=== PATIENT | female | born 1940 | race African-American/Black ===

== ENCOUNTER → 2016-04-07 | Outpatient (CLI) | payer MEDICARE, OTHER ==
--- NOTE | 2016-04-08 07:41 | XCELERA REPORT ---
[address] [address] Lower Extremity Arterial Evaluation Name: FLACO STEWART Age: 75 yrs Gender: Female : 1940 Patient Status: Outpatient Patient Location: Study Date: 04/07/2016 01:03 PM Procedure: A color flow and duplex scan of the lower extremity arteries was performed bilaterally with velocity and waveform anaylsis. Ankle brachial indicies performed. Reason For Study: RLE ULCER L97.812 Ordering Physician: ALEJANDRO SOOD Performed By: Austen Obrien Measurements and Calculations Right Left SUPPLY CHAIN DESIGN MANAGER PSV 117.1 85.1 cm/sec Prox PFA PSV -73.5 -77.3 cm/sec Dist SFA PSV -73.3 -63.5 cm/sec Prox Pop A PSV 61.8 55.3 cm/sec Dist CORI PSV 51.5 29.9 cm/sec Dist LABORATORY TECHNOLOGY TEACHER PSV -58.3 55.6 cm/sec González Pedis PSV 61.5 61.5 cm/sec Right Side Arterial Evaluation Normal velocity, waveform and triphasic flow are present, from the Common Femoral artery to the Femora. Then biphasic to the infrageniculate vessels. The ankle-brachial index is 1.14. 0-19 % stenosis is noted . At the Femoral. Left Side Arterial Evaluation Normal velocity, waveform and triphasic flow are present, from the Common Femoral artery to the Femoral. Then biphasic to the infrageniculate vessels. The ankle-brachial index is 1.14. 0-19 % stenosis is noted . At the Femoral. Interpretation Summary Mild hemodynamically significant lesions in the bilateral lower extremities, on duplex imaging, at rest. : ALEJANDRO SOOD > Jb Oseguera
--- NOTE | 2016-04-08 08:04 | XCELERA REPORT ---
[address] [address] Lower Extremity Venous Evaluation Name: FLACO STEWART Age: 75 yrs Gender: Female : 1940 Patient Status: Outpatient Patient Location: Study Date: 04/07/2016 01:15 PM Procedure: A bilateral duplex scan of the lower extremity veins was performed. The evaluation included responses to compression and other maneuvers with patient in the supine and standing positions to assess venous insufficiency. Reason For Study: RLE ULCER L97.812 Ordering Physician: ALEJANDRO SOOD Performed By: Austen Obrien Right Sided Venous Evaluation Deep venous system evaluation shows patent veins with significant reflux identified. 4.4 second reflux in the CFV,. Sapheno Femoral junction: 4.5 second reflux. Greater Saphenous vein, Proximal thigh: reflux: no reflux. Greater Saphenous vein, mid thigh: reflux: no reflux. Greater Saphenous vein, Distal thigh: reflux: no reflux. Greater Saphenous vein, Proximal below knee: reflux: 4.1 seconds. 6 mm diameter. Greater Saphenous vein, Mid below knee: reflux: none. Greater Saphenous vein, Distal below knee: reflux: 3.8 seconds. 3 mm diameter. No significant Perforators identified. Left Sided Venous Evaluation Deep venous system evaluatiion shows patent veins with no obstruction or significant reflux identified. Sapheno Femoral junction: no reflux. Femoral vein reflux: no reflux. Greater Saphenous vein, Proximal thigh: reflux: no reflux. Greater Saphenous vein, Distal thigh: reflux: 4.6 seconds.4 mm diameter. Greater Saphenous vein, Proximal below knee: reflux: no reflux. No significant Perforators identified. Interpretation Summary No duplex evidence of DVT or obstruction in the bilateral lower extremities. Minimal reflux as noted. : ALEJANDRO SOOD > Jb Oseguera
== END ==
LOC: SP 12:40
PROVIDERS: ATTEND Plastic Surgery
DX: I87.2 Venous insufficiency (chronic) (peripheral) (principal); L97.812 Non-pressure chronic ulcer of other part of right lower leg with fat layer exposed
CPT/HCPCS: 93925; 93970

== ENCOUNTER 2016-11-15 18:04 | Emergency (ER) | payer MEDICARE, OTHER ==
[2016-11-15] MEDS ORDERED: CLONIDINE 0.2 MG/24 HR PATCH.TDWK TD ONE (21:42)
--- NOTE | 2016-11-15 21:50 | ER Document Report ---
ED Cardiac - General Mode of Arrival: Medic Information source: Patient TRAVEL OUTSIDE OF THE U[place] IN LAST 30 DAYS: No - HPI Patient complains to provider of: Other - elevated blood pressures at home Quality of pain: None Similar symptoms previously: Yes Recently seen / treated by doctor: Yes <CALOS PATTON - Last Filed: 11/15/16 21:51> <BARON MEDINA - Last Filed: 11/16/16 00:51> - General Time Seen by Provider: 11/15/16 21:40 Notes: Patient is a 76-year-old female who presents to the emergency department today with complaints of elevated blood pressures at home. Patient is currently on metoprolol 50 mg twice a day. Patient denies any recent changes in her medications. Patient also mentions that she has "side pain" but mentions that she has had this pain off and on in the past as well. Patient states she had no symptoms associated with the hypertension. (CALOS PATTON) - Related Data Allergies/Adverse Reactions: Shellfish * [Shellfish] Allergy (Severe, Verified 03/12/15 09:55) Rash Sulfa (Sulfonamide Antibiotics) Allergy (Severe, Verified 03/12/15 09:55) Burning pain in thighs/legs lactose [Lactose] Allergy (Intermediate, Verified 03/12/15 09:55) latex [Latex] Allergy (Intermediate, Verified 03/12/15 09:55) Skin gets dry & chapped Past Medical History - General Information source: Patient, [facility] Records - Social History Smoking Status: Never Smoker Cigarette use (# per day): No Chew tobacco use (# tins/day): No Frequency of alcohol use: None Drug Abuse: None Lives with: Family Family History: Reviewed & Not Pertinent - Past Medical History Cardiac Medical History: Reports: Hx Atrial Fibrillation, Hx Hypercholesterolemia, Hx Hypertension Pulmonary Medical History: Reports: Hx Pneumonia Malignancy Medical History: Reports: Hx Breast Cancer - Rt breast GI Medical History: Reports: Hx Diverticulitis Musculoskeltal Medical History: Reports Hx Arthritis Past Surgical History: Reports: Hx Appendectomy, Hx Bowel Surgery - Ileostomy, bowel resection, Hx Hysterectomy, Hx Ileostomy, Hx Pacemaker - Immunizations Hx Pneumococcal Vaccination: 12/21/05 <CALOS PATTON - Last Filed: 11/15/16 21:51> Review of Systems - Review of Systems Constitutional: No symptoms reported EENT: No symptoms reported Cardiovascular: See HPI, Other - elevated blood pressure at home. denies: Dizziness Respiratory: No symptoms reported Gastrointestinal: See HPI, Other - left "side" pain Genitourinary: No symptoms reported Female Genitourinary: No symptoms reported Musculoskeletal: No symptoms reported Skin: No symptoms reported Hematologic/Lymphatic: No symptoms reported Neurological/Psychological: denies: Headaches -: Yes All other systems reviewed and negative <CALOS PATTON - Last Filed: 11/15/16 21:51> Physical Exam <CALOS PATTON - Last Filed: 11/15/16 21:51> <BARON MEDINA - Last Filed: 11/16/16 00:51> - Vital signs Vitals: Resp Pulse Ox 23 H 100 11/15/16 21:41 11/15/16 21:41 - Notes Notes: PHYSICAL EXAM GENERAL: Alert, interacts well. No acute distress. HEAD: Normocephalic, atraumatic. EYES: Pupils equal, round, and reactive to light. Extraocular movements intact. ENT: Oral mucosa moist, tongue midline. NECK: Full range of motion. Supple. Trachea midline. LUNGS: Clear to auscultation bilaterally, no wheezes, rales, or rhonchi. No respiratory distress. HEART: Regular rate and rhythm. No murmurs, gallops, or rubs. ABDOMEN: Soft, non-tender. No left upper quadrant tenderness where patient indicates location of pain. Non-distended. Bowel sounds present in all 4 quadrants. EXTREMITIES: Moves all 4 extremities spontaneously. No edema, radial and dorsalis pedis pulses 2/4 bilaterally. No cyanosis. NEUROLOGICAL: Alert and oriented x3. Normal speech. PSYCH: Normal affect, normal mood. SKIN: Warm, dry, normal turgor. No rashes or lesions noted. (CALOS PATTON) Course <CALOS PATTON - Last Filed: 11/15/16 21:51> - Laboratory Result Diagrams: 11/15/16 20:25 11/15/16 20:25 <BARON MEDINA - Last Filed: 11/16/16 00:51> - Re-evaluation Re-evalutation: 11/16/16 00:47 CBC slightly low platelet count 106, CMP shows chronically elevated BUN no evidence of endorgan damage, initial troponin is indeterminate at 0.057, repeat troponin is decreasing and is 0.055. EKG is nonischemic. Patient's blood pressure was initially controlled with labetalol and she was given a clonidine patch of 0.2 mg, blood pressure remained decreased compared to arrival, did not want to reduce her blood pressure by more than 20% initially. Patient will be discharged home on clonidine patch, asked to follow-up with cardiology within the next week. ( BARON MEDINA) - Vital Signs Vital signs: Temp Pulse Resp BP Pulse Ox 15 174/70 H 99 11/15/16 23:16 11/15/16 23:15 11/15/16 23:16 - Laboratory Laboratory results interpreted by me: 11/15/16 11/15/16 20:25 20:25 Hct 47.1 H RDW 15.4 H Plt Count 106 L Monocytes % 14.1 H Sodium 146.1 H Potassium 3.4 L BUN 27 H Est GFR (Non-Af Amer) 50 L Glucose 169 H Total Bilirubin 1.8 H Direct Bilirubin 0.7 H AST 53 H Creatine Kinase 145 H Total Protein 6.0 L - EKG Interpretation by Me Additional EKG results interpreted by me: 11/16/16 00:49 EKG shows atrial flutter with a ventricularly paced rhythm, rate of 70, no ST segment elevations or depressions per my interpretation. (BARON MEDINA) Discharge <CALOS PATTON - Last Filed: 11/15/16 21:51> <BARON MEDINA - Last Filed: 11/16/16 00:51> - Discharge Clinical Impression: Hypertensive urgency Condition: Stable Disposition: HOME, SELF-CARE Additional Instructions: Today we did not find any signs of a heart attack. We reduce your blood pressure with labetalol and then started you on a clonidine patch 0.2 mg. This patch is good for 1 week. If you start becoming dizzy or lightheaded please take off the patch. I want you to continue taking your metoprolol twice a day, you may take the Lorazepam up to 3 times a day as needed for anxiety, your venlafaxine is your antidepressant and it should be taken every day as directed. Do not skip doses. I would like to follow-up with your storage brine worker or Dr. Mckenna within the next week to continue adjusting your blood pressure medications. Please check your blood pressure twice a day once in the morning and once at night and record this blood pressure so they know how to adjust your medications. Referrals: GRETCHEN GAN MD [EMERITUS] - Follow up as needed Scribe Attestation: 11/16/16 00:51 I personally performed the services described in the documentation, reviewed and edited the documentation which was dictated to the scribe in my presence, and it accurately records my words and actions. (BARON MEDINA) Scribe Documentation - Scribe Written by Scribe:: Hernando Truong, 11/15/2016 2151 acting as scribe for :: Kulwant <CALOS PATTON - Last Filed: 11/15/16 21:51>
[2016-11-15] MEDS ORDERED: CLONIDINE 0.2 MG/24 HR PATCH.TDWK ONE (21:59)
[2016-11-15] MEDS ORDERED: LIDOCAINE 1% INJ-PF (10 MG/ML) 30 ML SDV INJ ONE (22:44)
[2016-11-15 22:49] LABS: CREATINE KINASE MB 3.94 ng/mL (<4.55)
[2016-11-15 22:51] LABS: ALANINE AMINOTRANSFERASE 43 U/L (9-52); ALBUMIN 3.9 g/dL (3.5-5.0); ALKALINE PHOSPHATASE 117 U/L (38-126); ANION GAP 18 (5-19); ASPARTATE AMINO TRANSFERASE 53 U/L (14-36); BILIRUBIN,DIRECT 0.7 mg/dL (0.0-0.4); BILIRUBIN,TOTAL 1.8 mg/dL (0.2-1.3); BLOOD UREA NITROGEN 27 mg/dL (7-20); CALCIUM 9.3 mg/dL (8.4-10.2); CARBON DIOXIDE 29 mmol/L (22-30); CHLORIDE 99 mmol/L (98-107); CREATINE KINASE 145 U/L (30-135); CREATININE RESULT 1.07 mg/dL (0.52-1.25); GLUCOSE 169 mg/dL (75-110); POTASSIUM 3.4 mmol/L (3.6-5.0); SODIUM 146.1 mmol/L (137-145)
[2016-11-15 22:52] LABS: ABSOLUTE MONOCYTES (AUTO) 0.9 10^3/uL (0.1-1.4); ABSOLUTE NEUT (AUTO) 4.6 10^3/uL (1.7-8.2); BASOPHILS % (AUTO) 0.4 % (0-2); EOSINOPHILS % (AUTO) 0.3 % (0-6); HEMATOCRIT 47.1 % (36.0-47.0); HEMOGLOBIN 15.2 g/dL (12.0-15.5); HGB HCT DIFFERENCE -1.5; LYMPHOCYTES % (AUTO) 14.8 % (13-45); MEAN CORPUSCULAR HEMOGLOBIN 29.3 pg (27.0-33.4); MEAN CORPUSCULAR HGB CONC 32.3 g/dL (32.0-36.0); MEAN CORPUSCULAR VOLUME 91 fl (80-97); MONOCYTES % (AUTO) 14.1 % (3-13); RED BLOOD COUNT 5.18 10^6/uL (3.72-5.28); RED CELL DISTRIBUTION WIDTH 15.4 % (11.5-14.0); SEGMENTED NEUTROPHILS % (AUTO) 70.4 % (42-78); WHITE BLOOD COUNT 6.6 10^3/uL (4.0-10.5)
[2016-11-15 23:00] LABS: TROPONIN I 0.057 ng/mL
[2016-11-16 00:20] LABS: CREATINE KINASE MB 3.01 ng/mL (<4.55); TROPONIN I 0.055 ng/mL
[2016-11-16 01:15] VITALS: BP 170/101
--- NOTE | 2016-11-17 12:20 | EKG REPORT ---
SEVERITY:- ABNORMAL ECG - AFIB/FLUTTER AND VENTRICULAR-PACED RHYTHM : Confirmed by: Pennie Heard MD 17-Nov-2016 12:19:26
== END 2016-11-16 01:37 | disposition home or self-care (01) ==
LOC: ER 18:04
DX: I16.0 Hypertensive urgency (principal); I48.91 Unspecified atrial fibrillation; I10 Essential (primary) hypertension; E78.00 Pure hypercholesterolemia, unspecified; Z85.3 Personal history of malignant neoplasm of breast; Z90.710 Acquired absence of both cervix and uterus
CPT/HCPCS: 36415; 80053; 82550; 82553; 84484; 85025; 93005; 93010; 99284; J3490

== ENCOUNTER 2017-02-04 12:02 | Emergency (ER) | payer MEDICARE, OTHER ==
--- NOTE | 2017-02-04 13:02 | ER Document Report ---
ED Medical Screen (RME) - General Chief Complaint: Eye Problem Stated Complaint: EYE PROBLEM Time Seen by Provider: 02/04/17 12:52 Notes: The patient is a 76-year-old female, past medical history cataract surgery, presents with several weeks of intermittent bilateral blurry vision. She was at the volunteer assistant office today and noticed that her left eye was blurrier than normal and she was sent to the ER for further evaluation. PE: NAD. Pupils dilated and non-reactive (pupils may have been dilated at volunteer assistant's office). I have greeted and performed a rapid initial assessment of this patient. A comprehensive ED assessment and evaluation of the patient, analysis of test results and completion of the medical decision making process will be conducted by additional ED providers. TRAVEL OUTSIDE OF THE [place] IN LAST 30 DAYS: No - Related Data Allergies/Adverse Reactions: Shellfish * [Shellfish] Allergy (Severe, Verified 02/04/17 12:28) Rash Sulfa (Sulfonamide Antibiotics) Allergy (Severe, Verified 02/04/17 12:28) Burning pain in thighs/legs lactose [Lactose] Allergy (Intermediate, Verified 02/04/17 12:28) latex [Latex] Allergy (Intermediate, Verified 02/04/17 12:28) Skin gets dry & chapped Past Medical History - Social History Chew tobacco use (# tins/day): No Frequency of alcohol use: None Drug Abuse: None - Past Medical History Cardiac Medical History: Reports: Hx Atrial Fibrillation, Hx Hypercholesterolemia, Hx Hypertension Pulmonary Medical History: Reports: Hx Pneumonia Renal/ Medical History: Denies: Hx Peritoneal Dialysis Malignancy Medical History: Reports: Hx Breast Cancer - Rt breast GI Medical History: Reports: Hx Diverticulitis Musculoskeltal Medical History: Reports Hx Arthritis Past Surgical History: Reports: Hx Appendectomy, Hx Bowel Surgery - Ileostomy, bowel resection, Hx Hysterectomy, Hx Ileostomy, Hx Pacemaker Physical Exam - Vital signs Vitals: Temp Pulse Resp BP Pulse Ox 97.7 F 70 16 158/106 H 100 02/04/17 12:23 02/04/17 12:23 02/04/17 12:23 02/04/17 12:23 02/04/17 12:23 - HEENT Visual acuity- Right eye: 2/100 Visual acuity- Left eye: 2/100 Visual acuity- Both eyes: 2/100 Corrective lenses worn: Yes Course - Vital Signs Vital signs: Temp Pulse Resp BP Pulse Ox 97.7 F 70 16 158/106 H 100 02/04/17 12:23 02/04/17 12:23 02/04/17 12:23 02/04/17 12:23 02/04/17 12:23
--- NOTE | 2017-02-04 14:08 | ER Document Report ---
ED General - General Chief Complaint: Eye Problem Stated Complaint: EYE PROBLEM Time Seen by Provider: 02/04/17 12:52 Information source: Parent Notes: Patient is a 76-year-old female who presents from the residential real estate assistant office, . The patient states she started to have some left eye "irritation" yesterday. She denies any pain of the feeling or sensation of a foreign body. Patient states she has had this "many times" in the past and was provided eye ointment by Dr. Diehl district manager postal service according to the patient. Patient denies any blurry vision, double vision, eye pain, headache, neck pain, chest pain, palpitations, weakness or numbness, or fever. The residential real estate assistant was not able to find any foreign bodies in the eye but states that he believes that the patient is having a cranial nerve III left eye palsy as well as possibly palsy to the right eye and may be facial drooping. The patient states she does not feel any different than baseline. Patient does have a history of diabetes that has been poorly controlled in the past. Patient states she has seen her district manager postal service as well as her primary care physician Dr. Perera recently and they "had mentioned this". TRAVEL OUTSIDE OF THE [place] IN LAST 30 DAYS: No - HPI Onset: Other - See above Onset/Duration: Gradual Quality of pain: No pain Severity: Mild Pain Level: Denies Associated symptoms: Other - See above Exacerbated by: Denies Relieved by: Denies Similar symptoms previously: No Recently seen / treated by doctor: Yes - Related Data Allergies/Adverse Reactions: Shellfish * [Shellfish] Allergy (Severe, Verified 02/04/17 12:28) Rash Sulfa (Sulfonamide Antibiotics) Allergy (Severe, Verified 02/04/17 12:28) Burning pain in thighs/legs lactose [Lactose] Allergy (Intermediate, Verified 02/04/17 12:28) latex [Latex] Allergy (Intermediate, Verified 02/04/17 12:28) Skin gets dry & chapped Past Medical History - General Information source: Patient - Social History Smoking Status: Never Smoker Cigarette use (# per day): No Chew tobacco use (# tins/day): No Smoking Education Provided: No Frequency of alcohol use: None Drug Abuse: None Family History: Reviewed & Not Pertinent Patient has suicidal ideation: No Patient has homicidal ideation: No - Past Medical History Cardiac Medical History: Reports: Hx Atrial Fibrillation, Hx Hypercholesterolemia, Hx Hypertension Pulmonary Medical History: Reports: Hx Pneumonia Renal/ Medical History: Denies: Hx Peritoneal Dialysis Malignancy Medical History: Reports: Hx Breast Cancer - Rt breast GI Medical History: Reports: Hx Diverticulitis Musculoskeltal Medical History: Reports Hx Arthritis Past Surgical History: Reports: Hx Appendectomy, Hx Bowel Surgery - Ileostomy, bowel resection, Hx Hysterectomy, Hx Ileostomy, Hx Pacemaker - Immunizations Hx Pneumococcal Vaccination: 12/21/05 Review of Systems - Review of Systems Constitutional: denies: Fever EENT: Eye discharge, Tearing. denies: Blurred vision, Double vision, Nose discharge, Sinus discharge, Throat pain, Difficulty swallowing Cardiovascular: denies: Chest pain, Palpitations Respiratory: denies: Short of breath Gastrointestinal: denies: Vomiting Musculoskeletal: denies: Leg swelling Skin: Other - no hives. denies: Rash Neurological/Psychological: Other - no slurred speech -: Yes All other systems reviewed and negative Physical Exam - Vital signs Vitals: Temp Pulse Resp BP Pulse Ox 97.7 F 70 16 158/106 H 100 02/04/17 12:23 02/04/17 12:23 02/04/17 12:23 02/04/17 12:23 02/04/17 12:23 Interpretation: Normal Notes: Reviewed vital signs and nursing note as charted by RN. CONSTITUTIONAL: Alert and oriented and responds appropriately to questions. Well -appearing; well-nourished HEAD: Normocephalic; atraumatic EYES: Sclerae non-icteric; patient has bilateral irregular pupils consistent with prior bilateral cataract surgeries ENT: Normal nose; no rhinorrhea; moist mucous membranes; pharynx without lesions noted NECK: Supple without meningismus; non-tender; no carotid bruits CARD: Regular rate and rhythm; no murmurs RESP: Normal chest excursion without splinting or tachypnea; breath sounds clear and equal bilaterally ABD/GI: Normal bowel sounds; non-distended; soft, non-tender BACK: The back appears normal and is non-tender to palpation EXT: Normal ROM in all joints; no edema SKIN: No acute lesions noted NEURO: Patient has 5 out of 5 bilateral upper and lower extremity strength with sensation intact to light touch patient's left eye. Does appear to be in the down and out position consistent with a 3rd nerve palsy. Patient also appears to not be able to perform a lateral medial gaze of her right eye. In addition the patient appears to have some right facial drooping. PSYCH: The patient's mood and manner are appropriate. Grooming and personal hygiene are appropriate. - HEENT Visual acuity- Right eye: 2/100 Visual acuity- Left eye: 2/100 Visual acuity- Both eyes: 2/100 Corrective lenses worn: Yes Course - Re-evaluation Re-evalutation: 02/04/17 14:11 Given the above history and physical examination I will order an MRI MRA of the head. We will also obtain basic labs, and EKG, and reassess. I would like to evaluate for possible stroke or aneurysm. Given the long-standing history of diabetes with the patient really having no complaints or new symptomatology, I am wondering if this is a chronic condition secondary to uncontrolled diabetes for an extended period of time. 02/04/17 14:12 EKG shows a heart rate of 72, ventricularly paced rhythm intermittently 02/04/17 17:11 Patient could not have an MRI performed secondary to the patient's pacemaker. CT with and without contrast of the head as well as a CTA did not show any obvious infarcts or aneurysms. Patient still insists that she has no complaints. Labs and EKG as recorded. Patient still has no weakness or numbness to the arms or legs. Given the above history, physical, extensive imaging, I will attempt to call the patient's primary care physician once again, and the patient will be discharged home with strict return precautions. 02/04/17 17:16 I was able to call and speak to the opthomologist that sent the patient. I have alerted him of the findings and have had the patient follow up with him and primary physician once again. - Vital Signs Vital signs: Temp Pulse Resp BP Pulse Ox 97.7 F 70 16 158/106 H 100 02/04/17 12:23 02/04/17 12:23 02/04/17 12:23 02/04/17 12:23 02/04/17 12:23 - Laboratory Result Diagrams: 02/04/17 14:00 02/04/17 14:00 Laboratory results interpreted by me: 02/04/17 02/04/17 14:00 14:00 RBC 5.84 H Hgb 16.8 H Hct 51.5 H RDW 15.3 H Plt Count 127 L Monocytes % 16.5 H Sodium 150.4 H Potassium 3.5 L Carbon Dioxide 31 H BUN 23 H Est GFR (Non-Af Amer) 56 L Glucose 121 H Discharge - Discharge Clinical Impression: Bilateral eye complaint Condition: Good Disposition: HOME, SELF-CARE Additional Instructions: Please make sure that you follow-up with your primary care physician and the residential real estate assistant again as we have discussed. Come back immediately with any headaches, blurry vision, chest pain, weakness or numbness, or any other acute problems. Referrals: GRETCHEN PERERA MD [Primary Care Provider] - Follow up as needed
[2017-02-04 14:23] LABS: ABSOLUTE LYMPHOCYTES (AUTO) 0.9 10^3/uL (0.5-4.7); ABSOLUTE MONOCYTES (AUTO) 0.7 10^3/uL (0.1-1.4); ABSOLUTE NEUT (AUTO) 2.8 10^3/uL (1.7-8.2); BASOPHILS % (AUTO) 0.3 % (0-2); EOSINOPHILS % (AUTO) 0.1 % (0-6); HEMATOCRIT 51.5 % (36.0-47.0); HEMOGLOBIN 16.8 g/dL (12.0-15.5); HGB HCT DIFFERENCE -1.1; LYMPHOCYTES % (AUTO) 19.3 % (13-45); MEAN CORPUSCULAR HEMOGLOBIN 28.8 pg (27.0-33.4); MEAN CORPUSCULAR HGB CONC 32.6 g/dL (32.0-36.0); MEAN CORPUSCULAR VOLUME 88 fl (80-97); MONOCYTES % (AUTO) 16.5 % (3-13); RED BLOOD COUNT 5.84 10^6/uL (3.72-5.28); RED CELL DISTRIBUTION WIDTH 15.3 % (11.5-14.0); SEGMENTED NEUTROPHILS % (AUTO) 63.8 % (42-78); WHITE BLOOD COUNT 4.5 10^3/uL (4.0-10.5)
[2017-02-04 14:29] LABS: PROTHROMBIN TIME 14.8 SEC (11.4-15.4)
[2017-02-04 15:04] LABS: ANION GAP 14 (5-19); BLOOD UREA NITROGEN 23 mg/dL (7-20); CARBON DIOXIDE 31 mmol/L (22-30); CHLORIDE 105 mmol/L (98-107); CREATININE RESULT 0.96 mg/dL (0.52-1.25); GLUCOSE 121 mg/dL (75-110); POTASSIUM 3.5 mmol/L (3.6-5.0); SODIUM 150.4 mmol/L (137-145)
--- NOTE | 2017-02-04 16:11 | RADIOLOGY REPORT (SQ) ---
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 TECHNIQUE: Axial images acquired through the brain without and with intravenous contrast. Images re viewed with bone, brain and subdural windows. Images stored on PACS. CT angio andreafski of Lutz was performed with dynamic contrast enhancement. Source axial images and m aximum intensity re- projected images through the andreafski of Lutz were reviewed. Additional 3D gavi nstructions and maximum intensity projected images were generated on an independent workstation by zaria gallo radiologist and saved to pac's. All CT scanners at this facility use dose modulation, iterative reconstruction, and/or weight based d osing when appropriate to reduce radiation dose to as low as reasonably achievable (ALARA). [facility]: Dose Right [facility]: CareDose [facility]: Dose Right [facility]: Teradose 4D [facility]: Perceptive Pixel CONTRAST TYPE AND DOSE: contrast/concentration: Isovue 370.00 mg/ml; Total Contrast Delivered: 70.0 ml; Total Saline Delivered: 75.0 ml RENAL FUNCTION: Creatinine 0.96 RADIATION DOSE: 179 mGy . LIMITATIONS: None. FINDINGS: VENTRICLES: Normal size and contour. CEREBRUM: No masses. No hemorrhage. No midline shift. Normal hightower/white matter differentiation. No ev idence for acute infarction. No enhancing lesions. Mild small vessel ischemic change in the bifronta l and biparietal white matter. 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 CEREBELLUM: No masses. No hemorrhage. No alteration of density. No evidence for acute infarction. No enhancing lesions. EXTRA-AXIAL SPACES: No fluid collections. No enhancing lesions. ORBITS AND GLOBE: No intra- or extraconal masses. Normal contour of globe without masses. CALVARIUM: No fracture. PARANASAL SINUSES: No fluid or mucosal thickening. SOFT TISSUES: No mass or hematoma. CT ANGIO JAMUL OF LUTZ: No andreafski of Lutz stenosis, vascular malformation, or aneurysm. o rigin right posterior cerebral artery, left vertebral artery dominant, right vertebral artery ends in the PICA. There is less than 50% narrowing of the right para clinoid ICA due to calcific plaque. IMPRESSION: Chronic white matter disease. No acute ischemic change, intracranial hemorrhage, mass e ffect, or shift. No andreafski of Lutz stenosis, vascular malformation, or aneurysm. In particular, no posterior commun icating artery aneurysm is identified. EVIDENCE OF ACUTE STROKE: NO. TECHNICAL DOCUMENTATION: JOB ID: [id number] Quality ID # [id number]: Final reports with documentation of one or more dose reduction techniques (e.g., Au tomated exposure control, adjustment of the mA and/or kV according to patient size, use of iterative reconstruction technique) 2010 [employer]- All Rights Reserved
--- NOTE | 2017-02-04 16:11 | RADIOLOGY REPORT (SQ) ---
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 TECHNIQUE: Axial images acquired through the brain without and with intravenous contrast. Images re viewed with bone, brain and subdural windows. Images stored on PACS. CT angio [place] was performed with dynamic contrast enhancement. Source axial images and m aximum intensity re- projected images through the [place] were reviewed. Additional 3D gavi nstructions and maximum intensity projected images were generated on an independent workstation by zaria gallo radiologist and saved to pac's. All CT scanners at this facility use dose modulation, iterative reconstruction, and/or weight based d osing when appropriate to reduce radiation dose to as low as reasonably achievable (ALARA). [facility]: Dose Right [facility]: CareDose [facility]: Dose Right [facility]: Teradose 4D [facility]: [employer] CONTRAST TYPE AND DOSE: contrast/concentration: Isovue 370.00 mg/ml; Total Contrast Delivered: 70.0 ml; Total Saline Delivered: 75.0 ml RENAL FUNCTION: Creatinine 0.96 RADIATION DOSE: 179 mGy . LIMITATIONS: None. FINDINGS: VENTRICLES: Normal size and contour. CEREBRUM: No masses. No hemorrhage. No midline shift. Normal hightower/white matter differentiation. No ev idence for acute infarction. No enhancing lesions. Mild small vessel ischemic change in the bifronta l and biparietal white matter. 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 CEREBELLUM: No masses. No hemorrhage. No alteration of density. No evidence for acute infarction. No enhancing lesions. EXTRA-AXIAL SPACES: No fluid collections. No enhancing lesions. ORBITS AND GLOBE: No intra- or extraconal masses. Normal contour of globe without masses. CALVARIUM: No fracture. PARANASAL SINUSES: No fluid or mucosal thickening. SOFT TISSUES: No mass or hematoma. CT ANGIO [place]: No [place] stenosis, vascular malformation, or aneurysm. o rigin right posterior cerebral artery, left vertebral artery dominant, right vertebral artery ends in the PICA. There is less than 50% narrowing of the right para clinoid ICA due to calcific plaque. IMPRESSION: Chronic white matter disease. No acute ischemic change, intracranial hemorrhage, mass e ffect, or shift. No [place] stenosis, vascular malformation, or aneurysm. In particular, no posterior commun icating artery aneurysm is identified. EVIDENCE OF ACUTE STROKE: NO. TECHNICAL DOCUMENTATION: JOB ID: [id number] Quality ID # [id number]: Final reports with documentation of one or more dose reduction techniques (e.g., Au tomated exposure control, adjustment of the mA and/or kV according to patient size, use of iterative reconstruction technique) 2010 [employer]- All Rights Reserved
[2017-02-04 18:05] VITALS: BP 184/107
--- NOTE | 2017-02-05 09:31 | EKG REPORT ---
SEVERITY:- ABNORMAL ECG - AFIB/FLUTTER AND VENTRICULAR-PACED RHYTHM : Confirmed by: Samantha Garvey 05-Feb-2017 09:31:07
== END 2017-02-04 18:18 | disposition home or self-care (01) ==
LOC: ER 12:02
DX: H57.8 Other specified disorders of eye and adnexa (principal); E11.9 Type 2 diabetes mellitus without complications; I48.91 Unspecified atrial fibrillation; E78.00 Pure hypercholesterolemia, unspecified; Z91.013 Allergy to seafood; Z88.2 Allergy status to sulfonamides; Z91.040 Latex allergy status; Z85.3 Personal history of malignant neoplasm of breast; Z90.710 Acquired absence of both cervix and uterus
CPT/HCPCS: 36415; 70470; 70496; 80048; 84484; 85025; 85610; 93005; 93010; 99284

== ENCOUNTER 2017-02-08 11:51 | Inpatient (IN) | payer MEDICARE, OTHER ==
--- NOTE | 2017-02-08 13:20 | ER Document Report ---
ED Medical Screen (RME) - General Chief Complaint: Facial Droop Stated Complaint: FACE PAIN Time Seen by Provider: 02/08/17 13:14 Notes: Patient was here 2 days ago with some concerns about facial weakness and eye pain. CT and CTA at that time were unremarkable. Patient now returned with right facial droop. Please see previous note. TRAVEL OUTSIDE OF THE [place] IN LAST 30 DAYS: No - Related Data Allergies/Adverse Reactions: Shellfish * [Shellfish] Allergy (Severe, Verified 02/08/17 11:53) Rash Sulfa (Sulfonamide Antibiotics) Allergy (Severe, Verified 02/08/17 11:53) Burning pain in thighs/legs lactose [Lactose] Allergy (Intermediate, Verified 02/08/17 11:53) latex [Latex] Allergy (Intermediate, Verified 02/08/17 11:53) Skin gets dry & chapped Past Medical History - Past Medical History Cardiac Medical History: Reports: Hx Atrial Fibrillation, Hx Hypercholesterolemia, Hx Hypertension Pulmonary Medical History: Reports: Hx Pneumonia Renal/ Medical History: Denies: Hx Peritoneal Dialysis Malignancy Medical History: Reports: Hx Breast Cancer - Rt breast GI Medical History: Reports: Hx Diverticulitis Musculoskeltal Medical History: Reports Hx Arthritis Past Surgical History: Reports: Hx Appendectomy, Hx Bowel Surgery - Ileostomy, bowel resection, Hx Hysterectomy, Hx Ileostomy, Hx Pacemaker Physical Exam - Vital signs Vitals: Temp Pulse Resp BP Pulse Ox 98 F 74 16 217/105 H 100 02/08/17 11:58 02/08/17 11:58 02/08/17 11:58 02/08/17 11:58 02/08/17 11:58 Course - Vital Signs Vital signs: Temp Pulse Resp BP Pulse Ox 98 F 74 16 217/105 H 100 02/08/17 11:58 02/08/17 11:58 02/08/17 11:58 02/08/17 11:58 02/08/17 11:58
--- NOTE | 2017-02-08 14:46 | RADIOLOGY REPORT (SQ) ---
EXAM DESCRIPTION: CT HEAD WITHOUT COMPLETED DATE/TIME: 02/08/2017 2:30 pm REASON FOR STUDY: right facial droop COMPARISON: 02/04/2017 TECHNIQUE: Axial images acquired through the brain without intravenous contrast. Images reviewed wi th bone, brain and subdural windows. Images stored on PACS. All CT scanners at this facility use dose modulation, iterative reconstruction, and/or weight based d osing when appropriate to reduce radiation dose to as low as reasonably achievable (ALARA). [facility]: Dose Right [facility]: CareDose [facility]: Dose Right [facility]: Teradose 4D [facility]: Smart Esphion RADIATION DOSE: Up-to-date CT equipment and radiation dose reduction techniques were employed. CTDIv ol: 49.0 mGy. DLP: 881 mGy-cm. mGy. LIMITATIONS: None. FINDINGS: VENTRICLES: Prominent. CEREBRUM: No masses. No hemorrhage. No midline shift. Areas of low density in the white matter mos t likely due to chronic micro-vascular ischemic change. No evidence for acute infarction. CEREBELLUM: No masses. No hemorrhage. No alteration of density. No evidence for acute infarction. EXTRAAXIAL SPACES: Mild age-related involutional change. No fluid collections. No masses. ORBITS AND GLOBE: No intra- or extraconal masses. Normal contour of globe without masses. CALVARIUM: No fracture. PARANASAL SINUSES: No fluid or mucosal thickening. SOFT TISSUES: No mass or hematoma. OTHER: No other significant finding. IMPRESSION: MILD CHRONIC CHANGES OF ATROPHY AND MICROVASCULAR ISCHEMIA. NO ACUTE PROCESS. EVIDENCE OF ACUTE STROKE: NO. TECHNICAL DOCUMENTATION: JOB ID: [id number] Quality ID # 436: Final reports with documentation of one or more dose reduction techniques (e.g., Au tomated exposure control, adjustment of the mA and/or kV according to patient size, use of iterative reconstruction technique) 2010 [employer]- All Rights Reserved
[2017-02-08] MEDS ORDERED: CLONIDINE HCL 0.2 MG TABLET PO ONE (15:04)
[2017-02-08 15:10] LABS: HEMATOCRIT 50.2 % (36.0-47.0); HEMOGLOBIN 16.3 g/dL (12.0-15.5); HGB HCT DIFFERENCE -1.3; MEAN CORPUSCULAR HEMOGLOBIN 28.6 pg (27.0-33.4); MEAN CORPUSCULAR HGB CONC 32.5 g/dL (32.0-36.0); MEAN CORPUSCULAR VOLUME 88 fl (80-97); RED CELL DISTRIBUTION WIDTH 15.4 % (11.5-14.0); WHITE BLOOD COUNT 3.3 10^3/uL (4.0-10.5)
[2017-02-08 15:35] LABS: ALANINE AMINOTRANSFERASE 57 U/L (9-52); ALBUMIN 3.9 g/dL (3.5-5.0); ALKALINE PHOSPHATASE 90 U/L (38-126); ANION GAP 12 (5-19); ASPARTATE AMINO TRANSFERASE 65 U/L (14-36); BILIRUBIN,DIRECT 0.6 mg/dL (0.0-0.4); BILIRUBIN,TOTAL 1.3 mg/dL (0.2-1.3); BLOOD UREA NITROGEN 18 mg/dL (7-20); CALCIUM 9.1 mg/dL (8.4-10.2); CARBON DIOXIDE 30 mmol/L (22-30); CHLORIDE 108 mmol/L (98-107); CREATININE RESULT 0.96 mg/dL (0.52-1.25); GLUCOSE 92 mg/dL (75-110); SODIUM 150.4 mmol/L (137-145); TOTAL PROTEIN 6.6 g/dL (6.3-8.2)
--- NOTE | 2017-02-08 15:36 | ER Document Report ---
ED General - General Chief Complaint: Facial Droop Stated Complaint: FACE PAIN Time Seen by Provider: 02/08/17 13:14 Mode of Arrival: Ambulatory Information source: Patient TRAVEL OUTSIDE OF THE [place] IN LAST 30 DAYS: No - HPI Patient complains to provider of: Right-sided facial droop Onset: Other - 4 days ago Onset/Duration: Persistent Quality of pain: No pain Associated symptoms: None Exacerbated by: Denies Relieved by: Denies Similar symptoms previously: Yes Recently seen / treated by doctor: Yes Notes: Patient is a 76-year-old female with multiple medical problems who presents to the emergency room today complaining of right-sided facial droop, she was seen in this department approximately 4 days ago when she was having a right 3rd nerve palsy, over the past few days her right-sided facial droop gotten worse, she denies any chest pain or shortness of breath, no headache, denies pain anywhere, no fever or chills, her blood pressure is noted to be 217/105 in triage area - Related Data Allergies/Adverse Reactions: Shellfish * [Shellfish] Allergy (Severe, Verified 02/08/17 11:53) Rash Sulfa (Sulfonamide Antibiotics) Allergy (Severe, Verified 02/08/17 11:53) Burning pain in thighs/legs lactose [Lactose] Allergy (Intermediate, Verified 02/08/17 11:53) latex [Latex] Allergy (Intermediate, Verified 02/08/17 11:53) Skin gets dry & chapped Past Medical History - General Information source: Patient - Social History Smoking Status: Never Smoker Chew tobacco use (# tins/day): No Frequency of alcohol use: None Drug Abuse: None Family History: Reviewed & Not Pertinent Patient has suicidal ideation: No Patient has homicidal ideation: No - Past Medical History Cardiac Medical History: Reports: Hx Atrial Fibrillation, Hx Hypercholesterolemia, Hx Hypertension Pulmonary Medical History: Reports: Hx Pneumonia Renal/ Medical History: Denies: Hx Peritoneal Dialysis Malignancy Medical History: Reports: Hx Breast Cancer - Rt breast GI Medical History: Reports: Hx Diverticulitis Musculoskeltal Medical History: Reports Hx Arthritis Past Surgical History: Reports: Hx Appendectomy, Hx Bowel Surgery - Ileostomy, bowel resection, Hx Hysterectomy, Hx Ileostomy, Hx Pacemaker - Immunizations Hx Pneumococcal Vaccination: 12/21/05 Review of Systems - Review of Systems Constitutional: No symptoms reported EENT: Eye pain Cardiovascular: No symptoms reported Respiratory: No symptoms reported Gastrointestinal: No symptoms reported Genitourinary: No symptoms reported Female Genitourinary: No symptoms reported Musculoskeletal: No symptoms reported Skin: No symptoms reported Hematologic/Lymphatic: No symptoms reported Neurological/Psychological: See HPI -: Yes All other systems reviewed and negative Physical Exam - Vital signs Vitals: Temp Pulse Resp BP Pulse Ox 98 F 74 16 217/105 H 100 02/08/17 11:58 02/08/17 11:58 02/08/17 11:58 02/08/17 11:58 02/08/17 11:58 Interpretation: Hypertensive - General General appearance: Appears well, Alert - HEENT Head: Normocephalic, Atraumatic Eyes: Normal Pupils: PERRL - Respiratory Respiratory status: No respiratory distress Chest status: Nontender Breath sounds: Normal Chest palpation: Normal - Cardiovascular Rhythm: Regular Heart sounds: Normal auscultation Murmur: Yes Systolic murmur grade 1-6: 4 - Abdominal Inspection: Normal Distension: No distension Bowel sounds: Normal Tenderness: Nontender Organomegaly: No organomegaly - Back Back: Normal, Nontender - Extremities General upper extremity: Normal inspection, Nontender, Normal color, Normal ROM , Normal temperature General lower extremity: Normal inspection, Nontender, Normal color, Normal ROM , Normal temperature, Normal weight bearing. No: Nanci's sign - Neurological Neuro grossly intact: Yes Cognition: Normal Orientation: AAOx4 [place] Coma Scale Eye Opening: Spontaneous [place] Coma Scale Verbal: Oriented [place] Coma Scale Motor: Obeys Commands [place] Coma Scale Total: 15 Speech: Normal Cranial nerves: Facial palsy - Right side, Forehead sparing Motor strength normal: LUE, RUE, LLE, RLE Additional motor exam normals: Equal performance analyst. No: Pronator drift Sensory: Normal - Psychological Associated symptoms: Normal affect, Normal mood - Skin Skin Temperature: Warm Skin Moisture: Dry Skin Color: Normal Course - Re-evaluation Re-evalutation: 02/08/17 16:44 Patient with right-sided facial droop which has been worsening over the past 3 days, she is hypertensive with a blood pressure greater than 200 systolic, with thrombocytopenia and hypokalemia, therefore admission was advised, patient is in agreement with this, patient was discussed with the hospitalist service who agrees to admit for further evaluation and treatment - Vital Signs Vital signs: Temp Pulse Resp BP Pulse Ox 98 F 74 16 217/105 H 100 02/08/17 11:58 02/08/17 11:58 02/08/17 11:58 02/08/17 11:58 02/08/17 11:58 - Laboratory Result Diagrams: 02/08/17 14:46 02/08/17 14:46 Laboratory results interpreted by me: 02/08/17 02/08/17 14:46 14:46 WBC 3.3 L RBC 5.70 H Hgb 16.3 H Hct 50.2 H RDW 15.4 H Plt Count 83 L Monocytes % (Manual) 20 H Sodium 150.4 H Potassium 2.9 L* Chloride 108 H Est GFR (Non-Af Amer) 56 L Direct Bilirubin 0.6 H AST 65 H ALT 57 H - Diagnostic Test Radiology reviewed: Image reviewed, Reports reviewed - EKG Interpretation by Me Rhythm: A.Flutter When compared to previous EKG there are: No significant change Additional EKG results interpreted by me: 02/08/17 16:45 Ventricular paced rhythm 02/08/17 16:45 Critical Care Note - Critical Care Note Total time excluding time spent on procedures (mins): 35 Comments: Vision with hypertensive urgency, hypokalemia and thrombocytopenia, signs of subacute stroke with right-sided facial droop, requiring admission to the IMCU Discharge - Discharge Clinical Impression: Thrombocytopenia, Hypertensive urgency, Hypokalemia CVA (cerebral vascular accident) Qualifiers: CVA mechanism: unspecified Qualified Code(s): I63.9 - Cerebral infarction, unspecified Condition: Fair Disposition: ADMITTED INPATIENT Admitting Provider: Hospitalist Unit Admitted: [facility] Referrals: GRETCHEN GAN MD [Primary Care Provider] - Follow up as needed
[2017-02-08 15:41] LABS: POTASSIUM 2.9 mmol/L (3.6-5.0)
[2017-02-08 15:44] LABS: BASOPHILS % (MANUAL) 0 % (0-2); EOSINOPHILS % (MANUAL) 0 % (0-6); LYMPHOCYTES % (MANUAL) 22 % (13-45); TOTAL CELLS COUNTED 100
[2017-02-08 15:47] LABS: ANISOCYTOSIS SLIGHT; OVALOCYTES 1+; POIKILOCYTOSIS 1+
--- NOTE | 2017-02-08 16:56 | EKG REPORT ---
SEVERITY:- ABNORMAL ECG - AFIB/FLUTTER AND VENTRICULAR-PACED RHYTHM : Confirmed by: Samantha Garvey 08-Feb-2017 16:55:21
[2017-02-08] MEDS ORDERED: POTASSI CL 20 MEQ/50 ML RIDER 20 MEQ/50 ML RTUPB IV SCH (17:00)
[2017-02-08 17:17] LABS: APPEARANCE,URINE CLEAR; BILIRUBIN,URINE NEGATIVE (NEGATIVE); GLUCOSE, URINE NEGATIVE (NEGATIVE); KETONES,URINE TRACE mg/dL (NEGATIVE); LEUKOCYTE ESTERASE,URINE SMALL (NEGATIVE); NITRITE,URINE NEGATIVE (NEGATIVE); PROTEIN,URINE 30 mg/dL (NEGATIVE); URINE SPECIFIC GRAVITY 1.008; UROBILINOGEN,URINE NEGATIVE mg/dL (<2.0)
[2017-02-08] MEDS ORDERED: POTASSI CL 20 MEQ/1/2NS 1L 20 MEQ/1,000 ML RTUINJ IV PRN (17:52)
[2017-02-08] MEDS ORDERED: GLUCAGON,HUMAN RECOMB 1 MG INJ SUBCUT PRN (17:52)
[2017-02-08] MEDS ORDERED: ACETAMINOPHEN 650 MG SUPP.RECT PR PRN (17:52)
[2017-02-08] MEDS ORDERED: DEXTROSE 50%-WATER 25 GM/50 ML DISP.SYRIN IV PRN ×2 (17:52)
[2017-02-08] MEDS ORDERED: DEXTROSE 40% GEL 15 GM TUBE PO PRN ×2 (17:52)
[2017-02-08] MEDS ORDERED: DEXTROSE 5%-1/4 NORMAL SALINE 1,000 ML IV PRN (18:03)
[2017-02-08] MEDS ORDERED: LABETALOL HCL INJ 20 MG/4 ML DISP.SYRIN IV PRN (18:07)
--- NOTE | 2017-02-08 18:36 | PDOC H&P ---
History of Present Illness Admission Date/PCP: 02/08/17 17:00 GRETCHEN GAN MD History of Present Illness: FLACO STEWART is a 76 year old -Citizen Of [place] female with past medical history significant for atrial fibrillation, hypertension, dyslipidemia who presents to the service with strokelike symptoms. Patient was seen here in our emergency room about 4 days ago. The patient went to her acute care physician office and started to have some left eye irritation. At that point she was noted to have what appeared to be a 3rd nerve left eye palsy as well as possible palsy to the right eye and facial drooping. She was sent over to the emergency room and at that time she had a CT scan of the head done CT scan done at that time showed chronic white matter disease with no acute ischemic change, intracranial hemorrhage mass-effect or shift no evidence of acute stroke. Because the patient has a pacemaker placed she could not have an MRI. CTA of the head was done which showed no [place] stenosis vascular malformation or aneurysm. In particular no posterior communicating artery aneurysm was identified. No evidence of acute stroke. Patient primary care physician and acute care physician were called by the ED and the patient was directed to follow-up with them in their respective offices. Over the course of the next 4 days the patient's right-sided facial droop worsened. She denies any chest pain, shortness of breath, headache, dizziness or blurred vision. Her blood pressure on arrival to the emergency room was 217/ 105. Patient was sent for repeat CT scan of the head which was negative for anything acute. Patient's EKG showed A. fib. Unfortunately, the patient is not the best historian. She cannot remember her medications. She was able to produce some of them at the bedside but they are all in her medicine containers and not the original bottles. She tells me that she follows with Dr. Diehl and that she had an echocardiogram of the heart about a week ago. In the emergency room the patient received 1 dose of clonidine at 0.2 mg. This brought her systolic blood pressure down to 207. At the bedside, the patient's blood pressure was now 204. Towards the end of our interview the patient seemed to get fatigue and slightly confused. I asked her if she felt confused but she said that she did not. Patient denies any trouble swallowing. However, she then tells me that sometimes food feels a little different going down. Her family is with her in the room and her brother feels that her face actually looks a little bit better today. Past Medical History Cardiac Medical History: Reports: Atrial Fibrillation, Hyperlipidema, Hypertension Pulmonary Medical History: Reports: Pneumonia Malignancy Medical History: Reports: Breast Cancer - Rt breast GI Medical History: Reports: Diverticulitis Musculoskeltal Medical History: Reports: Arthritis Past Surgical History Past Surgical History: Reports: Appendectomy, Hysterectomy, Ileostomy, Pacemaker Social History Smoking Status: Never Smoker Hx Recreational Drug Use: No Hx Prescription Drug Abuse: No - Advance Directive Resuscitation Status: Full Code Family History Family History: None Parental Family History Reviewed: Yes Children Family History Reviewed: Yes Sibling(s) Family History Reviewed.: Yes Medication/Allergy Allergies/Adverse Reactions: Shellfish * [Shellfish] Allergy (Severe, Verified 02/08/17 11:53) Rash Sulfa (Sulfonamide Antibiotics) Allergy (Severe, Verified 02/08/17 11:53) Burning pain in thighs/legs lactose [Lactose] Allergy (Intermediate, Verified 02/08/17 11:53) latex [Latex] Allergy (Intermediate, Verified 02/08/17 11:53) Skin gets dry & chapped Review of Systems Review of Systems: Review of systems is positive for that already mentioned in the HPI. In addition to this the patient states that she has been gaining weight recently. She denies fevers, chills, diarrhea, constipation, blood in urine, blood in the stool, coughing up blood, throwing up blood, chest pain, shortness of breath, nausea, vomiting, heat or cold intolerance. Physical Exam Vital Signs: Temp Pulse Resp BP Pulse Ox 98 F 74 27 H 204/92 H 99 02/08/17 11:58 02/08/17 11:58 02/08/17 17:01 02/08/17 17:01 02/08/17 17:01 GENERAL: This is a well-developed well-nourished appearing -Citizen [place] female resting in bed currently in no acute distress. HEENT: Normocephalic atraumatic. Trachea is midline. Sclera are anicteric. Dry mucous membranes. HEART: Regular rate and rhythm. No murmurs, rubs or gallops. Pacemaker is in place. LUNGS: Clear to auscultation bilaterally with equal rise and fall of the chest. Patient is not using any accessory muscles to breathe. ABDOMEN: Soft, nontender, nondistended with normoactive bowel sounds EXTREMETIES: No clubbing, cyanosis. 2 +edema. 2+ peripheral pulses bilaterally. Strength is 5 out of 5 in both the upper and lower extremities bilaterally. It is 5 out of 5 on the right lower extremity and obviously 3-4 out of 5 on the left lower extremity. NEURO: [Awake, alert and oriented 3. Patient has a right facial droop with flat nasal labial fold. Mouth is completely twisted to the left. Tongue is midline. She has some past pointing on exam. She is not able to perform rapid alternating movements with her left hand. Results Impressions: Head CT 02/08/17 13:16 IMPRESSION: MILD CHRONIC CHANGES OF ATROPHY AND MICROVASCULAR ISCHEMIA. NO ACUTE PROCESS. EVIDENCE OF ACUTE STROKE: NO. Assessment & Plan - Diagnosis (1) Hypertensive emergency Plan: Patient's blood pressure is out of control. I think that she likely suffered a stroke as a result of either this or atrial fibrillation. Patient will need her blood pressure slowly brought down. She is essentially have permissive hypertension over the last 4 days worsening of her stroke symptoms. She received a dose of clonidine down in the ED. According to the patient this is not a home medication of hers. I would like to avoid clonidine so that we may not run into the issue of rebound hypertension. For now I am going to have her get a dose of labetalol. Her blood pressures running awfully close to 220. I would like to bring her down to between 185 and 190. Patient states she usually runs in the 170s. We will admit her to the ICU since her blood pressure is extremely high and she may necessitate a continuous drip to help control her blood pressure. I think that it will be safer for her in the ICU at least overnight also because her stroke may be evolving. (2) CVA (cerebral vascular accident) Qualifiers: CVA mechanism: unspecified Qualified Code(s): I63.9 - Cerebral infarction, unspecified Plan: I have concern for MCA stroke. Patient has weakness of the left side with right facial droop. CTs have been negative. Unfortunately we cannot obtain an MRI secondary to the patient's pacemaker. She will need to be maintained on aspirin, statin. This may be a direct result of her hypertensive emergency versus her underlying A. fib. We will try and obtain Dr. Dennis most recent echo. Also we will add on carotid Dopplers. (3) A-fib Plan: Pacemaker is in place. It is unclear to me as to whether or not the patient is on any blood thinner. Her medicines are not in their original bottles and she cannot recall what they are. I note that she is thrombocytopenic. For now I will not proceed with any anticoagulation. Her home medicines still need to be verified. (4) Dyslipidemia Plan: Verify home medications. The patient states that she used to be on cholesterol medication but that she was taken off of it. With her new stroke the patient does need to be on high dose statin. (5) Hypokalemia Plan: This is being replaced in the ED. patient has only received 20 mEq. I will give her another 20 mEq. Repeat labs in the morning. (6) Thrombocytopenia Plan: Patient's platelets were on the low side when she came in 4 days ago. There are further decreased today. Repeat platelet count in the morning. Again I am unsure if she is on any sort of anticoagulation. (7) Heart failure Qualifiers: Heart failure type: unspecified heart failure type Heart failure chronicity : unspecified heart failure chronicity Qualified Code(s): I50.9 - Heart failure, unspecified Plan: Patient has bilateral lower extremity edema. She follows with Dr. Diehl. She has a pacemaker placed. I suspect she has some underlying heart failure. The patient cannot be specific with me than to say she does not believe she is ever been diagnosed with heart failure. She does however state that she is on a fluid pill. We will verify her medications. And try to obtain Dr. Dennis most recent echo. - Time Time Spent: 50 to 70 Minutes - Inpatient Certification Medical Necessity: Need Close Monitoring Due to Risk of Patient Decompensation
[2017-02-08] MEDS ORDERED: POTASSI CL 20 MEQ/50 ML RIDER 20 MEQ/50 ML RTUPB IV ONE (19:15)
[2017-02-08] MEDS: ATORVASTATIN CALCIUM 80 MG TABLET PO SCH (22:11)
[2017-02-09 06:37] LABS: ABSOLUTE LYMPHOCYTES (AUTO) 0.8 10^3/uL (0.5-4.7); ABSOLUTE MONOCYTES (AUTO) 0.5 10^3/uL (0.1-1.4); ABSOLUTE NEUT (AUTO) 1.3 10^3/uL (1.7-8.2); BASOPHILS % (AUTO) 0.5 % (0-2); EOSINOPHILS % (AUTO) 0.2 % (0-6); HEMATOCRIT 43.5 % (36.0-47.0); HEMOGLOBIN 14.3 g/dL (12.0-15.5); HGB HCT DIFFERENCE -0.6; LYMPHOCYTES % (AUTO) 29.8 % (13-45); MEAN CORPUSCULAR HGB CONC 32.9 g/dL (32.0-36.0); MEAN CORPUSCULAR VOLUME 88 fl (80-97); MONOCYTES % (AUTO) 19.9 % (3-13); RED BLOOD COUNT 4.93 10^6/uL (3.72-5.28); RED CELL DISTRIBUTION WIDTH 15.5 % (11.5-14.0); SEGMENTED NEUTROPHILS % (AUTO) 49.6 % (42-78); WHITE BLOOD COUNT 2.6 10^3/uL (4.0-10.5)
[2017-02-09 07:11] LABS: ANION GAP 12 (5-19); BLOOD UREA NITROGEN 14 mg/dL (7-20); CALCIUM 8.2 mg/dL (8.4-10.2); CARBON DIOXIDE 26 mmol/L (22-30); CHLORIDE 108 mmol/L (98-107); CREATININE RESULT 0.78 mg/dL (0.52-1.25); GLUCOSE 77 mg/dL (75-110); MAGNESIUM 1.7 mg/dL (1.6-2.3); POTASSIUM 3.1 mmol/L (3.6-5.0); SODIUM 145.9 mmol/L (137-145)
[2017-02-09] MEDS: POTASSI CL 20 MEQ/50 ML RIDER 20 MEQ/50 ML RTUPB IV SCH ×2 (09:04→12:34)
[2017-02-09] MEDS ORDERED: ENOXAPARIN SODIUM INJ 40 MG/0.4 ML DISP.SYRIN SUBCUT SCH (10:00)
--- NOTE | 2017-02-09 11:26 | PDOC PROGRESS REPORT ---
Subjective Progress Note for:: 02/09/17 Subjective:: Patient continues to have right-sided facial droop. She reports that she is swallowing fine but does report the food gets stuck in her right cheek. Physical Exam Vital Signs: Temp Pulse Resp BP Pulse Ox 98.9 F 70 16 182/102 H 100 02/09/17 08:01 02/09/17 08:01 02/09/17 08:01 02/09/17 08:01 02/09/17 08:01 Intake & Output 02/08/17 02/09/17 02/10/17 06:59 06:59 06:59 Intake Total 800 Output Total 0 Balance 800 Weight 58.5 kg General appearance: PRESENT: no acute distress Eye exam: PRESENT: conjunctiva pink. ABSENT: scleral icterus Mouth exam: PRESENT: moist, tongue midline Neck exam: ABSENT: JVD Respiratory exam: PRESENT: clear to auscultation reshma. ABSENT: rales, rhonchi, wheezes Cardiovascular exam: PRESENT: RRR. ABSENT: diastolic murmur, rubs, systolic murmur GI/Abdominal exam: PRESENT: normal bowel sounds, soft. ABSENT: distended, guarding, mass, organolmegaly, rebound, tenderness Extremities exam: ABSENT: calf tenderness, clubbing, pedal edema Neurological exam: PRESENT: alert, awake, oriented to person, oriented to place , oriented to time, oriented to situation. ABSENT: CN II-XII grossly intact - Right-sided facial droop. Psychiatric exam: PRESENT: appropriate affect Skin exam: PRESENT: dry, intact, warm. ABSENT: cyanosis, rash Results Laboratory Results: 02/09/17 05:38 02/09/17 05:38 02/09/17 02/09/17 05:38 05:38 WBC 2.6 L RBC 4.93 Hgb 14.3 Hct 43.5 MCV 88 MCH 29.0 MCHC 32.9 RDW 15.5 H Plt Count 70 L Seg Neutrophils % 49.6 Lymphocytes % 29.8 Monocytes % 19.9 H Eosinophils % 0.2 Basophils % 0.5 Absolute Neutrophils 1.3 L Absolute Lymphocytes 0.8 Absolute Monocytes 0.5 Absolute Eosinophils 0.0 Absolute Basophils 0.0 Sodium 145.9 H Potassium 3.1 L Chloride 108 H Carbon Dioxide 26 Anion Gap 12 BUN 14 Creatinine 0.78 Est GFR ( Amer) > 60 Est GFR (Non-Af Amer) > 60 Glucose 77 Calcium 8.2 L Magnesium 1.7 Impressions: Head CT 02/08/17 13:16 IMPRESSION: MILD CHRONIC CHANGES OF ATROPHY AND MICROVASCULAR ISCHEMIA. NO ACUTE PROCESS. EVIDENCE OF ACUTE STROKE: NO. Assessment & Plan - Diagnosis (1) Hypertensive emergency Is this a current diagnosis for this admission?: Yes Plan: Her blood pressure still elevated. Will continue with the clonidine patch and add on Norvasc. (2) A-fib Is this a current diagnosis for this admission?: Yes Plan: Patient is currently rate controlled. She has a pacemaker in place and is normally followed by Dr. Diehl. (3) CVA (cerebral vascular accident) Qualifiers: CVA mechanism: unspecified Qualified Code(s): I63.9 - Cerebral infarction, unspecified Is this a current diagnosis for this admission?: Yes Plan: The patient's head CT was unremarkable however she cannot have an MRI because of her pacemaker. Patient is to have carotid Dopplers done. (4) Dyslipidemia Is this a current diagnosis for this admission?: Yes Plan: Continue with the statin. (5) Heart failure Qualifiers: Heart failure type: unspecified heart failure type Heart failure chronicity : unspecified heart failure chronicity Qualified Code(s): I50.9 - Heart failure, unspecified Is this a current diagnosis for this admission?: Yes Plan: Is not clear whether she has systolic or diastolic dysfunction. 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 (6) Hypokalemia Is this a current diagnosis for this admission?: Yes Plan: We will replace and continue to monitor. (7) Thrombocytopenia Is this a current diagnosis for this admission?: Yes Plan: No evidence for active bleeding at this time. - Time Time Spent with patient: 25-34 minutes - Plan Summary Plan Summary: If we can get her blood pressure under control she can hopefully be discharged home tomorrow.
[2017-02-09] MEDS ORDERED: AMLODIPINE BESYLATE 5 MG TABLET PO ONE (12:00)
--- NOTE | 2017-02-09 16:02 | RADIOLOGY REPORT (SQ) ---
EXAM DESCRIPTION: CAROTID DOPPLER COMPLETED DATE/TIME: 02/09/2017 3:49 pm REASON FOR STUDY: stroke COMPARISON: None. TECHNIQUE: Grayscale ultrasound, Doppler velocity and spectra, and color Doppler images acquired of the extra-cranial carotid and vertebral arteries. Images stored on PACS. LIMITATIONS: None. FINDINGS: RIGHT CAROTID CCA Velocities: Within normal limits. ICA Velocities Peak systolic 42cm/s. End diastolic 11cm/s. Proximal ICA/CCA peak systolic ratio 0.8. Spectra normal. No significant plaque. LEFT CAROTID CCA Velocities: Within normal limits. ICA Velocities Peak systolic 15cm/s. End diastolic 14cm/s. Proximal ICA/CCA peak systolic ratio 1.1. Spectra normal. No significant plaque. VERTEBRAL ARTERIES: Antegrade flow. Normal waveforms. SUBCLAVIAN ARTERIES: No finding. OTHER: No other significant finding. IMPRESSION: NO HEMODYNAMICALLY SIGNIFICANT STENOSIS. COMMENT: Quality ID #[id number]: Velocity criteria are extrapolated from the diameter data as defined by t es[place] Society of Radiologists in Ultrasound Consensus Conference. Radiology 2003: 229; 340-346. TECHNICAL DOCUMENTATION: JOB ID: [id number] [email or web address]- All Rights Reserved
[2017-02-09] MEDS ORDERED: LORAZEPAM 0.5 MG TABLET ONE (21:35)
[2017-02-09] MEDS: ATORVASTATIN CALCIUM 80 MG TABLET PO SCH (21:36)
[2017-02-09] MEDS ORDERED: LORAZEPAM 0.5 MG TABLET PO ONE (21:45)
[2017-02-10 04:57] LABS: ABSOLUTE MONOCYTES (AUTO) 0.5 10^3/uL (0.1-1.4); ABSOLUTE NEUT (AUTO) 1.9 10^3/uL (1.7-8.2); BASOPHILS % (AUTO) 0.3 % (0-2); EOSINOPHILS % (AUTO) 0.5 % (0-6); HEMATOCRIT 44.1 % (36.0-47.0); HEMOGLOBIN 14.7 g/dL (12.0-15.5); LYMPHOCYTES % (AUTO) 30.2 % (13-45); MEAN CORPUSCULAR HEMOGLOBIN 29.1 pg (27.0-33.4); MEAN CORPUSCULAR HGB CONC 33.3 g/dL (32.0-36.0); MEAN CORPUSCULAR VOLUME 87 fl (80-97); MONOCYTES % (AUTO) 14.6 % (3-13); RED BLOOD COUNT 5.05 10^6/uL (3.72-5.28); RED CELL DISTRIBUTION WIDTH 15.3 % (11.5-14.0); SEGMENTED NEUTROPHILS % (AUTO) 54.4 % (42-78); WHITE BLOOD COUNT 3.4 10^3/uL (4.0-10.5)
[2017-02-10 05:19] LABS: ANION GAP 11 (5-19); BLOOD UREA NITROGEN 17 mg/dL (7-20); CALCIUM 8.6 mg/dL (8.4-10.2); CARBON DIOXIDE 26 mmol/L (22-30); CHLORIDE 108 mmol/L (98-107); CREATININE RESULT 0.83 mg/dL (0.52-1.25); GLUCOSE 118 mg/dL (75-110); POTASSIUM 3.6 mmol/L (3.6-5.0); SODIUM 144.7 mmol/L (137-145)
[2017-02-10] MEDS ORDERED: AMLODIPINE BESYLATE 5 MG TABLET PO SCH (10:00)
[2017-02-10 11:40] VITALS: BP 166/73
--- NOTE | 2017-02-10 16:06 | PDOC DISCHARGE SUMMARY ---
General - Admit/Disc Date/PCP Admission Date/Primary Care Provider: 02/08/17 17:00 GRETCHEN GAN MD Discharge Date: 02/10/17 - Discharge Diagnosis (1) Hypertensive emergency Is this a current diagnosis for this admission?: Yes Summary: Patient's blood pressures have decreased. (2) A-fib Is this a current diagnosis for this admission?: Yes (3) CVA (cerebral vascular accident) Is this a current diagnosis for this admission?: Yes Summary: Patient had a negative head CT but was unable to get an MRI secondary to her pacemaker. Carotid Dopplers were normal. (4) Dyslipidemia Is this a current diagnosis for this admission?: Yes (5) Hypokalemia Is this a current diagnosis for this admission?: Yes (6) Thrombocytopenia Is this a current diagnosis for this admission?: Yes - Additional Information Resuscitation Status: Full Code Discharge Diet: Cardiac, Diabetic Discharge Activity: Activity As Tolerated Home Medications: Cetirizine HCl [Zyrtec 10 mg Tablet] 10 mg PO DAILY 02/08/17 Lisinopril [Prinivil 10 mg Tablet] 10 mg PO DAILY 02/08/17 Lorazepam [Ativan 0.5 mg Tablet] 0.5 mg PO Q8 02/08/17 Metoprolol Tartrate [Lopressor 25 mg Tablet] 50 mg PO Q12 02/08/17 Rivaroxaban [Xarelto 15 mg Tablet] 15 mg PO DAILY 02/08/17 Amlodipine Besylate [Norvasc 5 mg Tablet] 5 mg PO DAILY #30 tablet 02/10/17 Aspirin 81 mg PO DAILY #30 tab.chew 02/10/17 Atorvastatin Calcium [Lipitor 80 mg Tablet] 80 mg PO QHS #30 tablet 02/10/17 Clonidine [Catapres-Tts 1 (0.1 mg/24 Hr) Transderm Patch] 1 patch TOP Q7D #4 patch.tdwk 02/10/17 History of Present Illness History of Present Illness: FLACO STEWART is a 76 year old female with a history of H fibrillation hypertension who presents with strokelike symptoms. 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 The patient was thought to have left 3rd nerve palsy at that time and right sided facial drooping. The patient then had a head CT done that showed no acute ischemic changes. A CTA of the head also was done and no aneurysm was identified. All of this occurred 4 days prior to this admission. Over the next 4 days the patient's right-sided facial droop worsened. She also had problems with pocketing food in her cheek for which she had used her tongue to get the food out she was unable to use her right side face. She also did have some left arm weakness. Patient was admitted for CVA. She also was noted to have very elevated blood pressures when she presented. Hospital Course Hospital Course: 76-year-old female who presented with right-sided facial droop and left arm weakness. Patient had a head CT which showed no acute event. She was unable to get an MRI because of her pacemaker. The patient had carotid Dopplers that showed no evidence for stenosis. Patient was treated treated presumptively for an acute CVA. She was already on anticoagulants because of her Coumadin. Patient has been started on a baby aspirin a day in addition to her anticoagulation. The patient's left arm weakness resolved and she continues to have some right-sided facial droop. Her blood pressure was elevated and her clonidine patch was restarted. She also was put on Norvasc in addition to her other medications. The patient still has a right-sided facial droop but all of her other symptoms have resolved and was felt that she was stable for discharge to home. Physical Exam Vital Signs: Temp Pulse Resp BP Pulse Ox 98.2 F 72 16 166/73 H 100 02/10/17 11:20 02/10/17 11:20 02/10/17 11:20 02/10/17 11:20 02/10/17 11:20 Intake & Output 02/09/17 02/10/17 02/11/17 06:59 06:59 06:59 Intake Total 800 4005 Output Total 0 Balance 800 4005 Weight 58.5 kg 63.8 kg General appearance: PRESENT: no acute distress Eye exam: PRESENT: conjunctiva pink. ABSENT: scleral icterus Mouth exam: PRESENT: moist, tongue midline Neck exam: ABSENT: JVD Respiratory exam: PRESENT: clear to auscultation reshma. ABSENT: rales, rhonchi, wheezes Cardiovascular exam: PRESENT: RRR. ABSENT: diastolic murmur, rubs, systolic murmur GI/Abdominal exam: PRESENT: normal bowel sounds, soft. ABSENT: distended, guarding, mass, organolmegaly, rebound, tenderness Extremities exam: PRESENT: full ROM. ABSENT: calf tenderness, clubbing, pedal edema Neurological exam: PRESENT: alert, awake, oriented to person, oriented to place , oriented to time, oriented to situation. ABSENT: CN II-XII grossly intact - Right-sided facial droop, motor sensory deficit Psychiatric exam: PRESENT: appropriate affect Skin exam: PRESENT: dry, intact, warm. ABSENT: cyanosis, rash Results Laboratory Results: 02/10/17 04:26 02/10/17 04:26 02/10/17 02/10/17 04:26 04:26 WBC 3.4 L RBC 5.05 Hgb 14.7 Hct 44.1 MCV 87 MCH 29.1 MCHC 33.3 RDW 15.3 H Plt Count 72 L Seg Neutrophils % 54.4 Lymphocytes % 30.2 Monocytes % 14.6 H Eosinophils % 0.5 Basophils % 0.3 Absolute Neutrophils 1.9 Absolute Lymphocytes 1.0 Absolute Monocytes 0.5 Absolute Eosinophils 0.0 Absolute Basophils 0.0 Sodium 144.7 Potassium 3.6 Chloride 108 H Carbon Dioxide 26 Anion Gap 11 BUN 17 Creatinine 0.83 Est GFR ( Amer) > 60 Est GFR (Non-Af Amer) > 60 Glucose 118 H Calcium 8.6 Impressions: Head CT 02/08/17 13:16 IMPRESSION: MILD CHRONIC CHANGES OF ATROPHY AND MICROVASCULAR ISCHEMIA. NO ACUTE PROCESS. EVIDENCE OF ACUTE STROKE: NO. Carotid Doppler Study 02/09/17 00:00 IMPRESSION: NO HEMODYNAMICALLY SIGNIFICANT STENOSIS. Qualifiers PATEINT BEING DISCHARGED WITH ANY OF THE FOLLOWING DIAGNOSIS?: Stroke Stroke Pt being discharged on Anti-thrombolytic therapy?: Yes Stroke Pt being discharged on Anti-coagulation therapy?: Yes Stroke Pt being discharged on Statins?: Yes Plan Discharge Plan: Patient is discharged home. Follow with primary care in 2 weeks. Time Spent: Greater than 30 Minutes
[2017-02-14] MEDS ORDERED: CLONIDINE 0.1 MG/24 HR PATCH.TDWK TOP SCH (10:00)
== END 2017-02-10 11:58 | disposition home health service (06) | DRG 304 ==
LOC: ER 11:51 → EH 17:00 → 3W 21:27
PROVIDERS: ADMIT Emergency Medicine; ATTEND Emergency Medicine
DX: I16.1 Hypertensive emergency (principal); I63.9 Cerebral infarction, unspecified; G81.94 Hemiplegia, unspecified affecting left nondominant side; I48.91 Unspecified atrial fibrillation; E78.00 Pure hypercholesterolemia, unspecified; D69.6 Thrombocytopenia, unspecified; M19.90 Unspecified osteoarthritis, unspecified site; R29.810 Facial weakness; I11.0 Hypertensive heart disease with heart failure; I50.9 Heart failure, unspecified; Z95.0 Presence of cardiac pacemaker; Z79.01 Long term (current) use of anticoagulants; Z79.82 Long term (current) use of aspirin; Z85.3 Personal history of malignant neoplasm of breast; Z90.710 Acquired absence of both cervix and uterus; Z88.2 Allergy status to sulfonamides; Z88.8 Allergy status to other drugs, medicaments and biological substances; Z91.040 Latex allergy status; Z91.013 Allergy to seafood; Z90.49 Acquired absence of other specified parts of digestive tract
CPT/HCPCS: 36415; 70450; 80048; 80053; 81001; 82962; 83735; 84484; 85025; 93005; 93010; 93880; 99291; G8978-GP; G8979-GP; G8980-GP; G8987-GO; G8988-GO; G8989-GO; G8996-GN; G8997-GN; J3480; J3490

== ENCOUNTER → 2017-04-14 | Outpatient (CLI) | payer MEDICARE, OTHER ==
[2017-04-14 09:28] LABS: ABSOLUTE LYMPHOCYTES (AUTO) 0.8 10^3/uL (0.5-4.7); ABSOLUTE MONOCYTES (AUTO) 0.5 10^3/uL (0.1-1.4); ABSOLUTE NEUT (AUTO) 2.4 10^3/uL (1.7-8.2); BASOPHILS % (AUTO) 0.6 % (0-2); EOSINOPHILS % (AUTO) 0.9 % (0-6); HEMATOCRIT 42.5 % (36.0-47.0); HEMOGLOBIN 13.9 g/dL (12.0-15.5); LYMPHOCYTES % (AUTO) 21.4 % (13-45); MEAN CORPUSCULAR HEMOGLOBIN 28.8 pg (27.0-33.4); MEAN CORPUSCULAR HGB CONC 32.6 g/dL (32.0-36.0); MEAN CORPUSCULAR VOLUME 88 fl (80-97); MONOCYTES % (AUTO) 13.9 % (3-13); PLATELET COUNT 104 10^3/uL (150-450); RED BLOOD COUNT 4.82 10^6/uL (3.72-5.28); RED CELL DISTRIBUTION WIDTH 15.7 % (11.5-14.0); SEGMENTED NEUTROPHILS % (AUTO) 63.2 % (42-78); TOTAL CELLS COUNTED % (AUTO) 100 %; WHITE BLOOD COUNT 3.8 10^3/uL (4.0-10.5)
[2017-04-14 10:01] LABS: ALANINE AMINOTRANSFERASE 50 U/L (9-52); ALBUMIN 3.9 g/dL (3.5-5.0); ALKALINE PHOSPHATASE 94 U/L (38-126); ANION GAP 9 (5-19); ASPARTATE AMINO TRANSFERASE 49 U/L (14-36); BILIRUBIN,DIRECT 0.2 mg/dL (0.0-0.4); BILIRUBIN,TOTAL 0.8 mg/dL (0.2-1.3); BLOOD UREA NITROGEN 30 mg/dL (7-20); CALCIUM 9.8 mg/dL (8.4-10.2); CARBON DIOXIDE 28 mmol/L (22-30); CHLORIDE 107 mmol/L (98-107); CHOLESTEROL 109.68 mg/dL (0-200); GLUCOSE 97 mg/dL (75-110); POTASSIUM 4.2 mmol/L (3.6-5.0); SODIUM 143.9 mmol/L (137-145); TOTAL PROTEIN 6.4 g/dL (6.3-8.2); TRIGLYCERIDES 37 mg/dL (<150)
[2017-04-14 10:12] LABS: DIRECT LDL 55 mg/dL (<100)
== END ==
LOC: OD 08:36
PROVIDERS: ATTEND Internal Medicine
DX: E78.00 Pure hypercholesterolemia, unspecified (principal); E87.6 Hypokalemia; D69.6 Thrombocytopenia, unspecified; Z79.899 Other long term (current) drug therapy
CPT/HCPCS: 36415; 80053; 80061; 85025

== ENCOUNTER → 2017-04-28 | Outpatient (CLI) | payer MEDICARE, OTHER ==
--- NOTE | 2017-04-28 09:44 | WOMENS IMAGING REPORT ---
EXAM DESCRIPTION: 3D SCREENING MAMMO BILAT COMPLETED DATE/TIME: 04/28/2017 9:20 am REASON FOR STUDY: ROUTINE SCREENING; Z12.31 Z12.31 ENCNTR SCREEN MAMMOGRAM FOR MALIGNANT NEOPLASM O F RAJNI COMPARISON: 2011 to 2015 TECHNIQUE: Standard craniocaudal and mediolateral oblique views of each breast recorded using digita l acquisition and breast tomosynthesis. LIMITATIONS: None. FINDINGS: Findings present which are benign by mammographic criteria. No suspicious masses, calcifi cations or architectural distortion. Pertinent benign findings: Surgical changes on the right Read with the assistance of CAD. .[facility] - R2 Cenova Version 1.3 .[facility] Imaging - R2 Cenova Version 1.[address] .[facility] Imaging - R2 Cenova Version 2.4 .[facility] - R2 Cenova Version 2.4 .[facility] - R2 [employer] Worker Version 9.2 Benign mammographic findings may include one or more of the following: Smooth masses, popcorn/rim/co arse calcifications, asymmetries, post-procedure changes, and lesions with long-standing stability. IMPRESSION: BENIGN MAMMOGRAPHIC FINDINGS. BIRADS 2 BREAST DENSITY: c. The breasts are heterogeneously dense, which may obscure small masses. BIRAD: 2 BENIGN FINDING(S) RECOMMENDATION: RECOMMENDATION: ROUTINE SCREENING COMMENT: The patient has been notified of the results by letter per SA requirements. Additional no tification policies are in place for contacting patient with suspicious or incomplete findings. Quality ID #225: The [employer] recommends an annual screening mammogram for women aged 40 years or over. This facility utilizes a reminder system to ensure that all patients receive reminder letters, and/or direct phone calls for appointments. This includes reminders for routine scr eening mammograms, diagnostic mammograms, or other Breast Imaging Interventions when appropriate. Th is patient will be placed in the appropriate reminder system. The [employer] (ACR) has developed recommendations for screening MRI of the breast s in certain patient populations, to be used in conjunction with mammography. Breast MRI surveillanc e may be appropriate for women with more than 20% lifetime risk of developing breast cancer as deter mined by genetic testing, significant family history of the disease, or history of mantle radiation f or Hodgkins Disease. ACR Practice Guidelines 2008. DBT Technology DBT is a type of tomographic mammography. With conventional mammography, overlapping breast tissue ma y make lesions difficult to detect, even with good compression. DBT uses an x-ray tube that rotates a round the breast, taking images at different angles. These images are then combined to create thin sl ices of the breast that the radiologist can view as a 3D reconstruction. The Hologic unit can perform full-field digital mammograms (2D imaging); or DBT (3D imaging); or both, in a combination mode that quickly performs both the mammogram and the tomosynthesis scan while the breast is still compressed. PQRS 6045F: Fluoroscopic imaging is not utilized for breast tomosynthesis. TECHNICAL DOCUMENTATION: FINDING NUMBER: (1) ASSESSMENT: (1) JOB ID: [id number] [employer]- All Rights Reserved
== END ==
LOC: WI 08:45
PROVIDERS: ATTEND Internal Medicine Medical Oncology
DX: Z12.31 Encounter for screening mammogram for malignant neoplasm of breast (principal)
CPT/HCPCS: 77063; 77067

== ENCOUNTER → 2018-01-24 | Outpatient (CLI) | payer MEDICARE, OTHER ==
[2018-01-24 10:33] LABS: CHOLESTEROL 129.92 mg/dL (0-200); DIRECT LDL 90 mg/dL (<100); TRIGLYCERIDES 49 mg/dL (<150)
[2018-01-25 11:56] LABS: ALANINE AMINOTRANSFERASE 35 U/L (9-52); ALBUMIN 3.9 g/dL (3.5-5.0); ALKALINE PHOSPHATASE 89 U/L (38-126); ANION GAP 13 (5-19); ASPARTATE AMINO TRANSFERASE 46 U/L (14-36); BILIRUBIN,DIRECT 0.3 mg/dL (0.0-0.4); BLOOD UREA NITROGEN 25 mg/dL (7-20); CALCIUM 9.4 mg/dL (8.4-10.2); CARBON DIOXIDE 29 mmol/L (22-30); CHLORIDE 102 mmol/L (98-107); GLUCOSE 138 mg/dL (75-110); POTASSIUM 4.4 mmol/L (3.6-5.0); SODIUM 144.3 mmol/L (137-145); TOTAL PROTEIN 6.7 g/dL (6.3-8.2)
== END ==
LOC: OD 08:52
PROVIDERS: ATTEND Internal Medicine
DX: E78.00 Pure hypercholesterolemia, unspecified (principal); I50.21 Acute systolic (congestive) heart failure; E11.9 Type 2 diabetes mellitus without complications; Z79.899 Other long term (current) drug therapy
CPT/HCPCS: 36415; 80053; 80061; 83036

== ENCOUNTER → 2018-02-11 | Outpatient (CLI) | payer MEDICARE, OTHER ==
[2018-02-11 09:38] LABS: ABSOLUTE MONOCYTES (AUTO) 0.4 10^3/uL (0.1-1.4); BASOPHILS % (AUTO) 0.2 % (0-2); EOSINOPHILS % (AUTO) 1.1 % (0-6); HEMATOCRIT 45.1 % (36.0-47.0); HEMOGLOBIN 14.8 g/dL (12.0-15.5); LYMPHOCYTES % (AUTO) 28.6 % (13-45); MEAN CORPUSCULAR HEMOGLOBIN 29.4 pg (27.0-33.4); MEAN CORPUSCULAR HGB CONC 32.9 g/dL (32.0-36.0); MEAN CORPUSCULAR VOLUME 90 fl (80-97); MONOCYTES % (AUTO) 12.8 % (3-13); RED BLOOD COUNT 5.04 10^6/uL (3.72-5.28); RED CELL DISTRIBUTION WIDTH 14.9 % (11.5-14.0); SEGMENTED NEUTROPHILS % (AUTO) 57.3 % (42-78); TOTAL CELLS COUNTED % (AUTO) 100 %; WHITE BLOOD COUNT 3.5 10^3/uL (4.0-10.5)
[2018-02-11 09:41] LABS: ANION GAP 9 (5-19); BLOOD UREA NITROGEN 32 mg/dL (7-20); CALCIUM 9.5 mg/dL (8.4-10.2); CARBON DIOXIDE 32 mmol/L (22-30); CHLORIDE 105 mmol/L (98-107); GLUCOSE 95 mg/dL (75-110); POTASSIUM 3.9 mmol/L (3.6-5.0); SODIUM 146.2 mmol/L (137-145)
[2018-02-11 10:07] LABS: PLATELET COUNT 90 10^3/uL (150-450)
[2018-02-11 10:27] LABS: INTERNATIONAL RATION (INR) 2.56; PROTHROMBIN TIME 28.7 SEC (11.4-15.4)
== END ==
LOC: OD 08:37
PROVIDERS: ATTEND Nurse Practitioner Family
DX: I48.91 Unspecified atrial fibrillation (principal)
CPT/HCPCS: 36415; 80048; 83735; 85025; 85610

== ENCOUNTER → 2018-11-30 | Outpatient (CLI) | payer MEDICARE, OTHER ==
[2018-11-30 09:51] LABS: CHOLESTEROL 143.96 mg/dL (0-200); TRIGLYCERIDES 46 mg/dL (<150)
[2018-11-30 10:02] LABS: DIRECT LDL 87 mg/dL (<100)
== END ==
LOC: OD 08:48
PROVIDERS: ATTEND Internal Medicine
DX: E78.00 Pure hypercholesterolemia, unspecified (principal)
CPT/HCPCS: 36415; 80061

== ENCOUNTER → 2019-01-10 | Outpatient (CLI) | payer MEDICARE, OTHER | LOC: SP 07:53 | PROVIDERS: ATTEND Nurse Practitioner Family | DX: L97.212 Non-pressure chronic ulcer of right calf with fat layer exposed (principal) | CPT/HCPCS: 93922; 93925 ==

== ENCOUNTER → 2019-02-07 | Outpatient (CLI) | payer MEDICARE, OTHER ==
--- NOTE | 2019-02-07 14:04 | RADIOLOGY REPORT (SQ) ---
EXAM DESCRIPTION: VENOUS UNILATERAL LOWER COMPLETED DATE/TIME: 02/07/2019 1:50 pm REASON FOR STUDY: RLE PAIN M79.661 PAIN IN RIGHT LOWER LEG COMPARISON: None. TECHNIQUE: Dynamic and static hightower scale and color images acquired of the right leg venous system. S elected spectral images acquired with additional compression and augmentation maneuvers. The contrala teral common femoral vein and saphenofemoral junction were also imaged. Images stored on PACS. LIMITATIONS: None. FINDINGS: COMMON FEMORAL: Normal phasicity, compression and augmentation. No visualized echogenic ma terial on hightower scale. No defects on color images. FEMORAL: Normal compression and augmentation. No visualized echogenic material on hightower scale. No defe cts on color images. POPLITEAL: Normal compression, augmentation. No visualized echogenic material on hightower scale. No defec ts on color images. CALF VESSELS: Normal compression, augmentation. No visualized echogenic material on hightower scale. No de fects on color images. GSV and SSV: Normal compression, augmentation. No visualized echogenic material on hightower scale. No def ects on color images. ANY DEEP VENOUS INSUFFICIENCY: Not evaluated. ANY EVIDENCE OF POPLITEAL CYST: No. OTHER: No other significant finding. CONTRALATERAL COMMON FEMORAL VEIN AND SAPHENOFEMORAL JUNCTION: Normal phasicity, compression and augmentation. No visualized echogenic material on hightower scale. No de fects on color images. IMPRESSION: NO EVIDENCE OF DVT OR SVT IN THE RIGHT LEG. TECHNICAL DOCUMENTATION: JOB ID: [id number] [employer]- All Rights Reserved Reading location - IP/workstation name: [email or web address]
== END ==
LOC: SP 12:10
PROVIDERS: ATTEND Nurse Practitioner Family
DX: I87.311 Chronic venous hypertension (idiopathic) with ulcer of right lower extremity (principal); L97.212 Non-pressure chronic ulcer of right calf with fat layer exposed; M79.661 Pain in right lower leg
CPT/HCPCS: 93971

== ENCOUNTER → 2019-04-04 | Outpatient (CLI) | payer MEDICARE, OTHER ==
--- NOTE | 2019-04-04 09:52 | RADIOLOGY REPORT (SQ) ---
EXAM DESCRIPTION: TIBIA FIBULA RIGHT COMPLETED DATE/TIME: 04/04/2019 8:53 am REASON FOR STUDY: NON-PRESSURE CHRONIC ULCER OF RIGHT CALF W FAT LAYER EXPOSED L97.212 NON-PRESSURE CHRONIC ULCER OF RIGHT CALF W FAT LAYER I87.311 CHRONIC VENOUS HYPERTENSION W ULCER OF R LOW EXTREM COMPARISON: Arterial and venous lower extremity Doppler exams 04/07/2016, 01/10/2019, 02/07/2019 NUMBER OF VIEWS: Two views. TECHNIQUE: Two radiographic images acquired of the right tibia and fibula to include the knee and an kle in at least one projection. LIMITATIONS: The right lower extremity is wrapped in a faintly radiopaque Unna Boot FINDINGS: MINERALIZATION: Normal. BONES: No acute fracture or dislocation. No worrisome bone lesions. SOFT TISSUES: No obvious swelling or foreign body. OTHER: No other significant finding. Minimal artifact from radiopaque dressing over the right lower leg IMPRESSION: No bony abnormalities worrisome for osteomyelitis. No soft tissue gas. Knee and ankle joint intact. TECHNICAL DOCUMENTATION: JOB ID: [id number] [employer]- All Rights Reserved Reading location - IP/workstation name: [email or web address]
[2019-04-04 10:01] LABS: ALBUMIN 4.3 g/dL (3.5-5.0); ALKALINE PHOSPHATASE 81 U/L (38-126); ANION GAP 7 (5-19); ASPARTATE AMINO TRANSFERASE 36 U/L (14-36); BILIRUBIN,DIRECT 0.2 mg/dL (0.0-0.4); BILIRUBIN,TOTAL 1.1 mg/dL (0.2-1.3); BLOOD UREA NITROGEN 24 mg/dL (7-20); CALCIUM 9.6 mg/dL (8.4-10.2); CARBON DIOXIDE 33 mmol/L (22-30); CHLORIDE 103 mmol/L (98-107); GLUCOSE 83 mg/dL (75-110); POTASSIUM 3.9 mmol/L (3.6-5.0); TOTAL PROTEIN 7.4 g/dL (6.3-8.2)
[2019-04-04 10:04] LABS: C-REACTIVE PROTEIN < 5.0 mg/L (<10.0)
[2019-04-04 10:16] LABS: ABSOLUTE LYMPHOCYTES (AUTO) 0.8 10^3/uL (0.5-4.7); ABSOLUTE MONOCYTES (AUTO) 0.5 10^3/uL (0.1-1.4); ABSOLUTE NEUT (AUTO) 2.6 10^3/uL (1.7-8.2); BASOPHILS % (AUTO) 0.2 % (0-2); HEMATOCRIT 44.7 % (36.0-47.0); HEMOGLOBIN 14.5 g/dL (12.0-15.5); LYMPHOCYTES % (AUTO) 20.9 % (13-45); MEAN CORPUSCULAR HEMOGLOBIN 29.1 pg (27.0-33.4); MEAN CORPUSCULAR HGB CONC 32.4 g/dL (32.0-36.0); MEAN CORPUSCULAR VOLUME 90 fl (80-97); MONOCYTES % (AUTO) 12.2 % (3-13); PLATELET COUNT 115 10^3/uL (150-450); RED BLOOD COUNT 4.99 10^6/uL (3.72-5.28); RED CELL DISTRIBUTION WIDTH 14.8 % (11.5-14.0); SEGMENTED NEUTROPHILS % (AUTO) 65.7 % (42-78); TOTAL CELLS COUNTED % (AUTO) 100 %
[2019-04-04 10:52] LABS: ERYTHROCYTE SEDIMENTATION RATE 6 mm/hr (0-30)
== END ==
LOC: WC 08:31
PROVIDERS: ATTEND Nurse Practitioner Family
DX: I87.331 Chronic venous hypertension (idiopathic) with ulcer and inflammation of right lower extremity (principal); L97.212 Non-pressure chronic ulcer of right calf with fat layer exposed
CPT/HCPCS: 36415; 80053; 85025; 85652; 86140

== ENCOUNTER → 2019-09-07 | Outpatient (CLI) | payer MEDICARE, OTHER ==
[2019-09-07 10:23] LABS: CHOLESTEROL 143.67 mg/dL (0-200); TRIGLYCERIDES 52 mg/dL (<150)
[2019-09-07 10:36] LABS: DIRECT LDL 71 mg/dL (<100)
== END ==
LOC: OD 08:44
PROVIDERS: ATTEND Internal Medicine
DX: E78.00 Pure hypercholesterolemia, unspecified (principal)
CPT/HCPCS: 36415; 80061